=== PATIENT | female | born 1955 | race Caucasian/White ===

== ENCOUNTER 2018-09-27 06:34 | Emergency (ER) | payer MEDICAID ==
[~2018-09-27] VITALS: Ht 157.5 cm; Wt 88.9 kg
[~2018-09-27 06:34] MED LIST: ESCI20TA38 PO; GLIM1TAB46 PO; LEVO125T8 PO; LOVA20TA2 PO; TAMO20TA4 PO
[2018-09-27 07:12] LABS: BASOPHILS # (AUTO) 0.1 X10'3 (0-0.2); BASOPHILS % (AUTO) 0.9 % (0-1); EOSINOPHILS # (AUTO) 0.5 X10'3 (0-0.9); EOSINOPHILS % (AUTO) 3.7 % (0-6); HEMATOCRIT 38.5 % (35.0-45.0); HEMOGLOBIN 12.8 g/dl (12.0-16.0); LYMPHOCYTES # (AUTO) 4.9 X10'3 (1.1-4.8); LYMPHOCYTES % (AUTO) 35.4 % (21-51); MEAN CORPUSCULAR HEMOGLOBIN 30.8 PG (27.0-31.0); MEAN CORPUSCULAR HGB CONC 33.1 g/dL (33.0-36.5); MEAN PLATELET VOLUME 9.5 FL (7.4-10.4); MONOCYTES # (AUTO) 0.9 X10'3 (0-0.9); MONOCYTES % (AUTO) 6.2 % (2-12); NEUTROPHILS # (AUTO) 7.4 X10'3 (1.8-7.7); NEUTROPHILS % (AUTO) 53.8 % (42-75); PLATELET COUNT 218 X10'3 (140-440); RED BLOOD COUNT 4.14 X10'6 (4.20-5.60); RED CELL DISTRIBUTION WIDTH 14.4 % (11.5-14.5); WHITE BLOOD COUNT 13.8 X10'3 (4.5-11.0)
[2018-09-27] MEDS ORDERED: ketorolac trometh inj. 60 MG/2 ML VIAL IM ONE (07:15)
[2018-09-27] MEDS ORDERED: ondansetron 4mg rapidly disintigrating tab PO ONE (07:15)
[2018-09-27 07:23] LABS: ALANINE AMINOTRANSFERASE 52 U/L (12-78); ALBUMIN 3.6 G/DL (3.4-5.0); ALBUMIN/GLOBULIN RATIO 0.8 (1.1-1.5); ALKALINE PHOSPHATASE 97 IU/L (46-116); ANION GAP 11 (8-16); ASPARTATE AMINO TRANSFERASE 41 U/L (10-37); BILIRUBIN,TOTAL 0.2 MG/DL (0.1-1.0); BLOOD UREA NITROGEN 13 MG/DL (7-18); BUN/CREATININE RATIO 18.8 (6.6-38.0); CALCIUM 9.4 MG/DL (8.5-10.1); CHLORIDE 102 MMOL/L (99-107); CREATININE 0.69 MG/DL (0.40-0.90); GLUCOSE 229 MG/DL (70-104); POTASSIUM 4.1 MMOL/L (3.5-5.1); SODIUM 137 MMOL/L (135-145); TOTAL CARBON DIOXIDE 24.5 MMOL/L (24-32); eGFR 86 ML/MIN
[2018-09-27 07:27] LABS: PROTHROMBIN TIME 10.6 SECONDS (9.0-12.0)
[2018-09-27 07:30] LABS: LIPASE 94 U/L (73-393); TROPONIN I < 0.04 NG/ML (0.0-0.05)
[2018-09-27 07:35] LABS: CLARITY,URINE CLEAR (Clear); COLOR,URINE YELLOW (Yellow); GLUCOSE, URINE NEGATIVE (Neg); KETONES,URINE NEGATIVE (Neg); LEUKOCYTE ESTERASE ,URINE SMALL (Neg); NITRITES, URINE NEGATIVE (Neg); OCCULT BLOOD,URINE NEGATIVE (Neg); PH,URINE 6.5 (4.8-8.0); PROTEIN,URINE NEGATIVE (Neg); UROBILINOGEN,URINE 0.2 E.U/dL (0.2-1.0)
[2018-09-27 07:36] LABS: UA COLLECTION TYPE CLN CATCH MIDSTREAM
[2018-09-27 07:42] LABS: BACTERIA,URINE NONE SEEN /HPF (Neg); MUCUS STRANDS NONE SEEN /LPF (Neg); RBC,URINE NONE SEEN /HPF (0-2); SQUAMOUS EPITHELIAL CELL,UR NONE SEEN /LPF (FEW); WBC,URINE 0-4 /HPF (0-4)
[2018-09-27] MEDS ORDERED: acetaminophen 325mg tablet PO ONE (08:35)
[2018-09-27] MEDS ORDERED: famotidine 20mg tablet PO ONE (08:35)
[2018-09-27] MEDS ORDERED: HYDR-3965 PO (08:35)
[2018-09-27] MEDS ORDERED: pantoprazole 40mg Tablet.DR PO ONE (08:35)
[2018-09-27] MEDS ORDERED: ONDA8TAB13 PO (08:35)
[2018-09-27 08:53] VITALS: BP 104/66
== END 2018-09-27 08:55 | disposition home or self-care (01) ==
LOC: ER 06:34
DX: R10.11 Right upper quadrant pain (principal); R11.0 Nausea; R19.7 Diarrhea, unspecified; E11.9 Type 2 diabetes mellitus without complications; E05.90 Thyrotoxicosis, unspecified without thyrotoxic crisis or storm; Z79.899 Other long term (current) drug therapy
CPT/HCPCS: 36415; 76700; 80053; 81001; 83690; 84484; 85025; 85610; 87088; 96372; 99284; J1885

== ENCOUNTER 2019-08-26 00:51 | Emergency (ER) | payer MEDICAID ==
[~2019-08-26] VITALS: Ht 157.5 cm; Wt 83.6 kg
[~2019-08-26 00:51] MED LIST changes: -ESCI20TA38 PO; +ESCI20TA45 PO; -GLIM1TAB46 PO; +GLIM1TAB6 PO; +ONDA8TAB13 PO
[2019-08-26] MEDS ORDERED: acetaminophen 325mg tablet PO STA (00:59)
[2019-08-26] MEDS ORDERED: acetaminophen 325mg tablet PO ONE (01:25)
--- NOTE | 2019-08-26 02:05 | NUR ---
checked in on the patient. She wishes she could sleep. I turned off the lights. Encouraged her to rest.
[2019-08-26 02:18] LABS: ALANINE AMINOTRANSFERASE 84 U/L (12-78); ALBUMIN 3.8 G/DL (3.4-5.0); ALBUMIN/GLOBULIN RATIO 0.9 (1.1-1.5); ALKALINE PHOSPHATASE 80 IU/L (46-116); ANION GAP 9 (8-16); ASPARTATE AMINO TRANSFERASE 137 U/L (10-37); BILIRUBIN,TOTAL 0.3 MG/DL (0.1-1.0); BLOOD UREA NITROGEN 13 MG/DL (7-18); BUN/CREATININE RATIO 14.9 (6.6-38.0); CALCIUM 9.5 MG/DL (8.5-10.1); CHLORIDE 102 MMOL/L (99-107); CREATININE 0.87 MG/DL (0.40-0.90); GLUCOSE 189 MG/DL (70-104); SODIUM 137 MMOL/L (135-145); TOTAL CARBON DIOXIDE 25.8 MMOL/L (24-32); TOTAL PROTEIN 8.1 G/DL (6.4-8.2); eGFR 66 ML/MIN
[2019-08-26 02:28] LABS: BASOPHILS % (AUTO) 0.5 % (0-1); EOSINOPHILS % (AUTO) 0.5 % (0-6); HEMATOCRIT 39.6 % (35.0-45.0); HEMOGLOBIN 13.3 g/dl (12.0-16.0); LYMPHOCYTES # (AUTO) 1.2 X10'3 (1.1-4.8); LYMPHOCYTES % (AUTO) 18.9 % (21-51); MEAN CORPUSCULAR HEMOGLOBIN 30.5 PG (27.0-31.0); MEAN CORPUSCULAR HGB CONC 33.6 g/dL (33.0-36.5); MEAN CORPUSCULAR VOLUME 90.7 FL (78-98); MEAN PLATELET VOLUME 9.6 FL (7.4-10.4); MONOCYTES # (AUTO) 0.7 X10'3 (0-0.9); MONOCYTES % (AUTO) 10.8 % (2-12); NEUTROPHILS # (AUTO) 4.5 X10'3 (1.8-7.7); NEUTROPHILS % (AUTO) 69.3 % (42-75); PLATELET COUNT 179 X10'3 (140-440); RED BLOOD COUNT 4.37 X10'6 (4.20-5.60); RED CELL DISTRIBUTION WIDTH 15.5 % (11.5-14.5); WHITE BLOOD COUNT 6.4 X10'3 (4.5-11.0)
--- NOTE | 2019-08-26 02:39 | NUR ---
Lynn hoppergertrude in ED - 08/26/[email or web address] Baig made aware of pt's croup like cough coming back and mild SOB. He was also made aware of her potassium level of 3.1
[2019-08-26] MEDS ORDERED: ipratropium/albuterol 3ml nebule NEB ONE (02:45)
[2019-08-26] MEDS ORDERED: normal saline 1000ML IV soln IVB ONE ×2 (02:45→02:55)
[2019-08-26] MEDS ORDERED: ibuprofen 200mg tablet PO ONE (02:45)
[2019-08-26] MEDS ORDERED: ASPI-1265 PO (04:14)
[2019-08-26] MEDS ORDERED: ALOG25TA2 PO (04:14)
[2019-08-26] MEDS ORDERED: ERTU5TAB PO (04:14)
[2019-08-26] MEDS ORDERED: METF-950 PO (04:14)
[2019-08-26] MEDS ORDERED: ESCI10TA61 PO (04:14)
[2019-08-26] MEDS ORDERED: LEVO137T2 PO (04:14)
[2019-08-26] MEDS ORDERED: oseltamivir phos 75mg capsule PO ONE (04:20)
[2019-08-26] MEDS ORDERED: normal saline 1000ML IV soln IV ONE (04:20)
[2019-08-26] MEDS ORDERED: TAM75C PO (04:51)
--- NOTE | 2019-08-26 04:55 | NUR ---
pt up to the BR
[2019-08-26 05:11] VITALS: BP 110/55
== END 2019-08-26 05:13 | disposition home or self-care (01) ==
LOC: ER 00:51
DX: J11.1 Influenza due to unidentified influenza virus with other respiratory manifestations (principal); E11.9 Type 2 diabetes mellitus without complications; E03.9 Hypothyroidism, unspecified; Z85.3 Personal history of malignant neoplasm of breast; Z79.82 Long term (current) use of aspirin; Z79.84 Long term (current) use of oral hypoglycemic drugs; Z79.899 Other long term (current) drug therapy
CPT/HCPCS: 36415; 71046; 80053; 83605; 84145; 85025; 87040; 87502; 87503; 94640; 99284; J7030

== ENCOUNTER 2022-05-11 18:12 | Emergency (ER) | payer MEDICARE, MEDICAID ==
[~2022-05-11] VITALS: Ht 157.5 cm; Wt 79.1 kg
[~2022-05-11 18:12] MED LIST changes: +ALOG25TA2 PO; +ASPI-1265 PO; +CEPH500C2 PO; +ERTU5TAB PO; +ESCI-8 PO; -ESCI20TA45 PO; -GLIM1TAB6 PO; -LEVO125T8 PO; +LEVO137T2 PO; -LOVA20TA2 PO; +METF-1203 PO; -ONDA8TAB13 PO; -TAMO20TA4 PO
[2022-05-11 18:58] VITALS: BP 133/73
[2022-05-11] MEDS ORDERED: ondansetron 4mg rapidly disintigrating tab PO ONE (19:45)
[2022-05-11] MEDS ORDERED: diphenhydrAMINE 25mg capsule PO ONE (19:45)
== END 2022-05-11 20:06 | disposition home or self-care (01) ==
LOC: ER 18:13
DX: R11.10 Vomiting, unspecified (principal); T36.0X5A Adverse effect of penicillins, initial encounter; Y92.89 Other specified places as the place of occurrence of the external cause; E11.9 Type 2 diabetes mellitus without complications; I10 Essential (primary) hypertension; Z85.3 Personal history of malignant neoplasm of breast; Z88.1 Allergy status to other antibiotic agents; Z79.899 Other long term (current) drug therapy
CPT/HCPCS: 99283; Q0163

== ENCOUNTER 2022-05-24 03:44 | Emergency (ER) | payer MEDICARE, MEDICAID ==
[~2022-05-24] VITALS: Ht 157.5 cm; Wt 73.2 kg
[~2022-05-24 03:44] MED LIST changes: -CEPH500C2 PO
[2022-05-24] MEDS ORDERED: morphine 4 MG/ML inj SYRINge IV ONE (03:50)
[2022-05-24] MEDS ORDERED: normal saline 1000ML IV soln IVB ONE (03:50)
[2022-05-24] MEDS ORDERED: ondansetron/PF 4mg/2ml inj IV ONE (03:50)
[2022-05-24 04:21] LABS: HEMOGLOBIN 14.6 g/dl (12.0-16.0); WHITE BLOOD COUNT 12.4 X10'3 (4.5-11.0)
[2022-05-24 04:22] LABS: BASOPHILS # (AUTO) 0.1 X10'3 (0-0.2); BASOPHILS % (AUTO) 0.7 % (0-1); EOSINOPHILS # (AUTO) 0.3 X10'3 (0-0.9); EOSINOPHILS % (AUTO) 2.1 % (0-6); HEMATOCRIT 43.4 % (35.0-45.0); LYMPHOCYTES # (AUTO) 3.4 X10'3 (1.1-4.8); LYMPHOCYTES % (AUTO) 27.3 % (21-51); MEAN CORPUSCULAR HEMOGLOBIN 31.4 PG (27.0-31.0); MEAN CORPUSCULAR HGB CONC 33.5 g/dL (33.0-36.5); MEAN CORPUSCULAR VOLUME 93.7 FL (78-98); MEAN PLATELET VOLUME 9.4 FL (7.4-10.4); MONOCYTES # (AUTO) 0.7 X10'3 (0-0.9); MONOCYTES % (AUTO) 5.9 % (2-12); NEUTROPHILS # (AUTO) 7.9 X10'3 (1.8-7.7); RED BLOOD COUNT 4.63 X10'6 (4.20-5.60); RED CELL DISTRIBUTION WIDTH 14.4 % (11.5-14.5)
[2022-05-24] MEDS ORDERED: EMPA10TA PO (04:31)
[2022-05-24 04:33] LABS: ALANINE AMINOTRANSFERASE 48 U/L (12-78); ALBUMIN 4.1 G/DL (3.4-5.0); ALBUMIN/GLOBULIN RATIO 1.1 (1.1-1.5); ALKALINE PHOSPHATASE 70 IU/L (46-116); ANION GAP 13 (8-16); ASPARTATE AMINO TRANSFERASE 37 U/L (10-37); BILIRUBIN,TOTAL 0.5 MG/DL (0.1-1.0); BLOOD UREA NITROGEN 8 MG/DL (7-18); BUN/CREATININE RATIO 11.4 (6.6-38.0); CALCIUM 9.9 MG/DL (8.5-10.1); CHLORIDE 96 MMOL/L (99-107); GLUCOSE 135 MG/DL (70-104); LIPASE 68 U/L (73-393); SODIUM 132 MMOL/L (135-145); TOTAL CARBON DIOXIDE 23.1 MMOL/L (24-32); TOTAL PROTEIN 7.8 G/DL (6.4-8.2); eGFR 84 ML/MIN
[2022-05-24 04:34] LABS: COLOR,URINE COLORLESS (Yellow); GLUCOSE, URINE 500 mg/dl (Neg); KETONES,URINE NEGATIVE (Neg); LEUKOCYTE ESTERASE ,URINE NEGATIVE (Neg); NITRITES, URINE NEGATIVE (Neg); OCCULT BLOOD,URINE NEGATIVE (Neg); PH,URINE 6.5 (4.8-8.0); PROTEIN,URINE NEGATIVE (Neg); UA COLLECTION TYPE CLN CATCH MIDSTREAM; UROBILINOGEN,URINE 0.2 E.U/dL (0.2-1.0)
[2022-05-24 04:35] LABS: CLARITY,URINE Clear (Clear); POTASSIUM 3.7 MMOL/L (3.5-5.1)
[2022-05-24 04:41] LABS: PLATELET COUNT 210 X10'3 (140-440)
[2022-05-24] MEDS ORDERED: iohexol 300mg/ml 100ml inj. ONE (04:42)
--- NOTE | 2022-05-24 04:47 | NUR ---
GOING TO CT WITH SOURCING ANALYST VIA W/C AFTER AMB TO AND FROM BATHROOM IND WITHOUT DIFFICULTY
[2022-05-24 08:36] VITALS: BP 105/87
== END 2022-05-24 08:39 | disposition home or self-care (01) ==
LOC: ER 03:44
DX: N13.30 Unspecified hydronephrosis (principal); R19.7 Diarrhea, unspecified; R10.9 Unspecified abdominal pain; Z88.1 Allergy status to other antibiotic agents
CPT/HCPCS: 74177; 76700; 80053; 81003; 83690; 85025; 96361; 96374; 96375; 99285; J2270; J2405; J3490; J7030; Q9967